=== PATIENT | male | born 1945 | race Hispanic/Latino ===

== ENCOUNTER 2018-08-25 09:26 | Emergency (ER) | payer OTHER ==
[~2018-08-25] VITALS: Ht 160 cm; Wt 88.0 kg
[~2018-08-25 09:26] MED LIST: AMLODIPINE BESYL5 MG PO; LEVEMIR; LEVOTHYROXINE150 MCG PO; METOPROLOL SUCC50 MG PO; Z.0.GLIMEPIRIDE4 MG PO; Z.0.SIMVASTATIN20 MG PO; Z.1.METFORMIN HCL100 PO; Z.2.LOSARTAN-HCTZ1 E PO; [UNRECOGNIZED DRUG - OTHER]
[2018-08-25] MEDS ORDERED: TETANUS/DIPHTHERIA TOX ADULT 0.5 ML SYR IM ONE (10:15)
--- NOTE | 2018-08-25 11:07 | Diagnostic Imaging Report ---
History:Fall in stairs Comparison studies:CT head 03/24/2012 Technique: Axial images were obtained from the skull base to the vertex. Coronal and sagittal images reconstructed from the axial data. Intravenous contrast: None Dose modulation, iterative reconstruction, and/or weight based adjustment of the mA/kV was utilized to reduce the radiation dose to as low as reasonably achievable. Findings: Scalp/skull: Midline occipital moderate size scalp hematoma with associated emphysema. No underlying fracture. Extra-axial spaces: No masses. Trace of subarachnoid hemorrhage at the right cingulate sulcus. No midline shift or herniation Brain sulci: Mildly prominent. Ventricles: Mild compensatory dilatation. No hydrocephalus. Parenchyma: Few hypodensities in the supratentorial white matter are small vessel ischemic changes. No masses, hemorrhage, acute or chronic cortical vascular insults. Sellar/suprasellar region: No abnormalities. Craniocervical junction: Patent foramen magnum. No Chiari one malformation. Incidental findings: Atherosclerotic calcifications in the carotid siphons . Impression: Trace of subarachnoid hemorrhage at the right cingulate sulcus. Moderate-sized occipital scalp hematoma with subcutaneous emphysema. No fractures Chronic findings: 1. Mild generalized volume loss. 2. Mild supratentorial white matter small vessel ischemic changes. The above finding was reported and acknowledged by Dr. Yap at 11:11 AM 08/25/2018. Signed by: DR Nishant Hawkins M.D. on 08/25/2018 11:12 AM
--- NOTE | 2018-08-25 11:21 | Diagnostic Imaging Report ---
History: Trauma, pain Comparison studies: None Technique: Axial images were obtained through the cervical region. Coronal and sagittal images reconstructed from the axial data. Dose modulation, iterative reconstruction, and/or weight based adjustment of the mA/kV was utilized to reduce the radiation dose to as low as reasonably achievable. Intravenous contrast: None Findings: Fractures: None. Soft tissue injuries: None. Atlantoaxial articulation: Intact. Alignment: Strain cervical curvature may be positional. The subluxations. Cervicomedullary junction: No abnormalities. The foramen magnum is patent. Soft tissues: No gross acute abnormalities. Vertebrae: No fractures, infection or neoplasm. Degenerative changes: Mild multilevel disc degeneration, greatest at C5-C6. Mild canal stenosis at C3-C4 due to a disc bulge with small central disc protrusion. Mild uncovertebral and facet arthrosis without significant foraminal stenosis. Incidental findings: Calcified atherosclerosis in the carotid siphons. Corticated 5 mm ossification medial to the greater cornu of the hyoid bone. Chronic inflammatory changes at the left mastoid tip. IMPRESSION: 1. No acute cervical spine abnormalities. 2. Ligament, spinal cord and or vascular abnormalities cannot be excluded on the basis of this examination Signed by: Dr. Vikram Delacruz M.D. on 08/25/2018 11:18 AM
--- NOTE | 2018-08-25 12:17 | NUR ---
REPORT TO [facility] [phone]
[2018-08-25 13:50] VITALS: BP 155/60
== END 2018-08-25 12:00 | disposition short-term general hospital (02) ==
LOC: FSED 09:26
DX: S06.6X0A Traumatic subarachnoid hemorrhage without loss of consciousness, initial encounter (principal); S01.01XA Laceration without foreign body of scalp, initial encounter; W18.2XXA Fall in (into) shower or empty bathtub, initial encounter; Y93.E1 Activity, personal bathing and showering; Y92.002 Bathroom of unspecified non-institutional (private) residence as the place of occurrence of the external cause; I10 Essential (primary) hypertension; E11.9 Type 2 diabetes mellitus without complications; E03.9 Hypothyroidism, unspecified
CPT/HCPCS: 70450; 72125; 80048; 85025; 90714; 99285

== ENCOUNTER 2019-04-20 05:30 | Observation (INO) | payer MEDICARE ==
[2019-04-18 10:17] LABS: BASOPHILS # (AUTO) 0.1 (0.0-0.1); BASOPHILS % 0.9 % (0.0-1.0); EOSINOPHILS # (AUTO) 0.1 (0.0-0.4); HEMATOCRIT 46.9 % (38.2-49.6); LYMPHOCYTES # (AUTO) 2.2 (1.0-3.2); LYMPHOCYTES % 32.6 % (18.0-39.1); MEAN CORPUSCULAR HEMOGLOBIN 28.2 pg (28-32); MEAN CORPUSCULAR VOLUME 88.3 fL (81-99); MONOCYTES # (AUTO) 0.7 (0.2-0.8); MONOCYTES % 9.6 % (4.4-11.3); NEUTROPHILS # (AUTO) 3.7 (2.1-6.9); NEUTROPHILS % 54.5 % (38.7-80.0); PLATELET COUNT 233 x10e3/uL (140-360); RED BLOOD COUNT 5.31 x10e6/uL (4.3-5.7); RED CELL DISTRIBUTION WIDTH 15.2 % (11.7-14.4)
--- NOTE | 2019-04-18 10:39 | Diagnostic Imaging Report ---
EXAM: CHEST 2 VIEWS DATE: 04/18/2019 9:51 AM INDICATION: Preoperative evaluation COMPARISON: None FINDINGS: The trachea is midline. The lungs are symmetrically expanded without evidence for large focal consolidation, pneumothorax, or significant pleural effusion. The cardiomediastinal silhouette and pulmonary vasculature are within normal limits. Mild tortuosity of the thoracic aorta noted. Degenerative changes noted of the visualized spine. No acute osseous abnormality is identified. The surrounding soft tissues are unremarkable. IMPRESSION: No acute cardiopulmonary process identified. Signed by: Dr. Kobe Castillo MD on 04/18/2019 10:36 AM
[2019-04-18 10:52] LABS: ANION GAP 16.8 mmol/L (8-16); CALCIUM 9.8 mg/dL (8.4-10.2); CREATININE, SERUM 1.29 mg/dL (0.72-1.25); POTASSIUM 3.8 mmol/L (3.5-5.1)
[2019-04-18 11:08] LABS: INR 0.94; PROTHROMBIN TIME 13.1 seconds (11.9-14.5)
[2019-04-18 11:09] LABS: PARTIAL THROMBOPLASTIN TIME 31.5 seconds (23.8-35.5)
[~2019-04-20] VITALS: Ht 160 cm; Wt 88.1 kg
[~2019-04-20 05:30] MED LIST changes: +ASPIRIN81 MG PO; -LEVEMIR; +LEVEMIR SQ; +LOSARTAN POTAS100 MG PO; +NOVOLIN R100 UNIT/1 SQ; +OZEMPIC0.25 MG/0. SQ
--- OUTSIDE RECORDS SUMMARY | 2019-04-20 05:40 | XMS REPORT ---
Author [facility] Address Unknown Phone Unavailable Care Team Providers Care Remedial Reading Teacher Name Role Phone OSCAR LANCE Unavailable Unavailable JM BENDER Unavailable Unavailable Problems This patient has no known problems. Allergies, Adverse Reactions, Alerts This patient has no known allergies or adverse reactions. Medications This patient has no known medications. Encounters Start Date/Time End Date/Time Encounter Type Admission Type Attending Clinicians Care Facility Care Department Encounter ID 2018-08-25 15:12:00 2018-08-25 12:43:00 Inpatient U [facility] [id number] Results Test Description Test Time Test Comments Text Results Atomic Results Result Comments CHEST 2 VIEWS 2019-04-18 10:31:00 [place] [address] Patient Name: MOOK DUMONT MR #: [id number] : 1945 Age/Sex: 74/M Req #: [id number] [facility] Physician: Ordered by: OSCAR LANCE MD Report #: [id number] Location: OR Room/Bed: Procedure: [id number] DX/CHEST 2 VIEWS Exam Date: Exam Time: REPORT STATUS: Signed EXAM: CHEST 2 VIEWS DATE: 04/18/2019 9:51 AM INDICATION: Preoperative evaluation COMPARISON: None FINDINGS: The trachea is midline. The lungs are symmetrically expanded without evidence for large focal consolidation, pneumothorax, or significant pleural effusion. The cardiomediastinal silhouette and pulmonary vasculature are within normal limits. Mild tortuosity of the thoracic aorta noted. Degenerative changes noted of the visualized spine. No acute osseous abnormality is identified. The surrounding soft tissues are unremarkable. IMPRESSION: No acute cardiopulmonary process identified. Signed by: Dr. Kobe Castillo MD on 04/18/2019 10:36 AM Dictated By: KOBE CASTILLO MD 1036 Transcribed By: FANNIE on 04/18/19 1036 COPY TO: OSCAR LANCE MD CT C-SPINE W/O - [facility] 2018-08-25 11:07:00 [place] [address] Patient Name: MOOK DUMONT MR #: [id number] : 1945 Age/Sex: 73/M Req #: [id number] Adm Physician: Ordered by: JM BENDER MD Report #: [id number] Location: [facility] Room/Bed: Procedure: [id number] HOPD/CT C-SPINE W/O - [facility] Exam Date: 08/25/18 Exam Time: 1108 REPORT STATUS: Signed History: Trauma, pain Comparison studies: None Technique: Axial images were obtained through the cervical region. Coronal and sagittal images reconstructed from the axial data. Dose modulation, iterative reconstruction, and/or weight based adjustment of the mA/kV was utilized to reduce the radiation dose to as low as reasonably achievable. Intravenous contrast: None Findings: Fractures: None. Soft tissue injuries: None. Atlantoaxial articulation: Intact. Alignment: Strain cervical curvature may be positional. The subluxations. Cervicomedullary junction: No abnormalities. The foramen magnum is patent. Soft tissues: No gross acute abnormalities. Vertebrae: No fractures, infection or neoplasm. Degenerative changes: Mild multilevel disc degeneration, greatest at C5-C6. Mild canal stenosis at C3-C4 due to a disc bulge with small central disc protrusion. Mild uncovertebral and facet arthrosis without significant foraminal stenosis. Incidental findings: Calcified atherosclerosis in the carotid siphons. Corticated 5 mm ossification medial to the greater cornu of the hyoid bone. Chronic inflammatory changes at the left mastoid tip. IMPRESSION: 1. No acute cervical spine abnormalities. 2. Ligament, spinal cord and or vascular abnormalities cannot be excluded on the basis of this examination Signed by: Dr. Pat Delacruz M.D. on 08/25/2018 11:18 AM Dictated By: PAT DELACRUZ MD 17 Transcribed By: FANNIE on 08/25/181117 COPY TO: JM BENDER MD CT BRAIN WO-[facility] 2018-08-25 11:02:00 [place] [address] Patient Name: MOOK DUMONT MR #: [id number] : 1945 Age/Sex: 73/M Req #: [id number] Adm Physician: Ordered by: JM BENDER MD Report #: [id number] Location: [facility] Room/Bed: Procedure: [id number] HOPD/CT BRAIN WO-[facility] Exam Date: 08/25/18 Exam Time: 1108 REPORT STATUS: Signed History:Fall in stairs Comparison studies:CT head 03/24/2012 Technique: Axial images were obtained from the skull base to the vertex. Coronal and sagittal images reconstructed from the axial data. Intravenous contrast: None Dose modulation, iterative reconstruction, and/or weight based adjustment of the mA/kV was utilized to reduce the radiation dose to as low as reasonably achievable. Findings: Scalp/skull: Midline occipital moderate size scalp hematoma with associated emphysema. No underlying fracture. Extra-axial spaces: No masses. Trace of subarachnoid hemorrhage at the right cingulate sulcus. No midline shift or herniation Brain sulci: Mildly prominent. Ventricles: Mild compensatory dilatation. No hydrocephalus. Parenchyma: Few hypodensities in the supratentorial white matter are small vessel ischemic changes. No masses, hemorrhage, acute or chronic cortical vascular insults. Sellar/suprasellar region: No abnormalities. Craniocervical junction: Patent foramen magnum. No Chiari one malformation. Incidental findings: Atherosclerotic calcifications in the carotid siphons . Impression: Trace of subarachnoid hemorrhage at the right cingulate sulcus. Moderate-sized occipital scalp hematoma with subcutaneous emphysema. No fractures Chronic findings: 1. Mild generalized volume loss. 2. Mild supratentorial white matter small vessel ischemic changes. The above finding was reported and acknowledged by Dr. Bender at 11:11 AM 08/25/2018. Signed by: DR Nishant Hawkins M.D. on 08/25/2018 11:12 AM Dictated By: NISHANT PARKER MD 111 Transcribed By: FANNIE on 08/25/181111 COPY TO: JM BENDER MD
[2019-04-20] MEDS ORDERED: THROMBIN FOR SOLN 5,000 UNIT VIAL ONE (06:44)
[2019-04-20] MEDS ORDERED: BACITRACIN 50,000 UNIT VIAL ONE (06:44)
[2019-04-20] MEDS ORDERED: BUPIVACAINE 0.5%/EPI 30 ML SDV INJ ONE (06:44)
[2019-04-20] MEDS ORDERED: CEFAZOLIN SOD 1 GM/NS 50ML 100 ML IV ONE (06:51)
[2019-04-20] MEDS ORDERED: INSULIN REGULAR, HUMAN 100 UNIT/1 ML 3ML VIAL ONE (07:04)
[2019-04-20] MEDS ORDERED: SUGAMMADEX SODIUM 200 MG/2 ML VIAL IV ONE (08:03)
[2019-04-20] MEDS: LACTATED RINGER'S 1,000 ML IV SCH ×2 (08:13→16:33)
[2019-04-20] MEDS ORDERED: PROMETHAZINE HCL (IM) 25 MG/ML VIAL IM PRN (08:15)
[2019-04-20] MEDS ORDERED: MAGNESIUM/ALUMINUM/SIMETHICONE 30 ML UDC PO PRN (08:15)
[2019-04-20] MEDS ORDERED: CARISOPRODOL 350 MG TAB PO PRN (08:15)
[2019-04-20] MEDS ORDERED: HYDROMORPHONE 2MG/ML 2 MG/ML ML IV PRN (08:15)
[2019-04-20] MEDS ORDERED: CEPACOL SORE THROAT LOZENGES PO PRN (08:15)
[2019-04-20] MEDS ORDERED: ONDANSETRON HCL INJ 2MG/ML 2ML 2 MG/ML VIAL IV PRN (08:15)
[2019-04-20] MEDS ORDERED: MORPHINE SULFATE 5 MG/ML VIAL IM PRN (08:15)
[2019-04-20] MEDS ORDERED: DEXTROSE 50% SYRINGE 50 ML IV PRN ×2 (08:15→20:00)
[2019-04-20] MEDS ORDERED: ACETAMINOPHEN 325 MG TAB PO PRN (08:15)
--- NOTE | 2019-04-20 08:38 | Diagnostic Imaging Report ---
Lumbar spine, single intraoperative view Clinical indications: L2-L3 spinal stenosis Findings/impression: Single crosstable lateral view of the lumbar spine was obtained. Multilevel degenerative changes of the lumbar spine which are most pronounced at L2-L3 Signed by: Cuong Scott MD on 04/20/2019 8:35 AM
--- NOTE | 2019-04-20 08:39 | Diagnostic Imaging Report ---
Lumbar spine, one view Clinical indication: L2-L3 spinal stenosis, surgical level localization Comparison: Earlier the same day Findings/impressions: Surgical instruments project over the posterior elements of L2. Signed by: Cuong Scott MD on 04/20/2019 8:36 AM
[2019-04-20] MEDS ORDERED: FENTANYL CITRATE/PF 100MCG/2 ML INJ ONE ×2 (08:48→18:13)
[2019-04-20] MEDS ORDERED: AMLODIPINE BESYLATE 5 MG TAB PO SCH (09:00)
[2019-04-20] MEDS ORDERED: LEVEMIR 35 UNIT SQ SCH (09:00)
[2019-04-20] MEDS ORDERED: LEVOTHYROXINE SODIUM 275 MCG PO SCH (09:00)
[2019-04-20] MEDS ORDERED: NON-FORMULARY MEDICATION (Glimepiride 4 MG) PO SCH (09:00)
[2019-04-20] MEDS ORDERED: NON-FORMULARY MEDICATION (Metformin Hcl 1,000 MG) PO SCH (09:00)
--- NOTE | 2019-04-20 09:45 | NUR ---
PT TO THE FLOOR FROM PACU AT THIS TIME. VITALS WNL. PT DENIES NEEDS AT THIS TIME.
[2019-04-20 10:00] VITALS: BP 145/89
[2019-04-20 10:15] VITALS: BP 145/89
[2019-04-20] MEDS: OXYCODONE/ACETAMINOPHEN 5-325 1 EACH TABLET PO PRN ×3 (11:09→20:08)
[2019-04-20] MEDS: INSULIN GLARGINE 100 UNITS/ML VIAL SQ SCH ×2 (12:24→20:13)
[2019-04-20] MEDS: CEFAZOLIN SOD 1 GM/NS 50ML 50 ML IV SCH ×2 (14:36→21:42)
[2019-04-20 15:01] VITALS: BP 159/99
--- NOTE | 2019-04-20 16:09 | Operative Report ---
DATE OF PROCEDURE: 04/20/2019 SURGEON: Gary Baum MD PREOPERATIVE DIAGNOSIS: L2-3 severe spinal stenosis with neurogenic claudication, M48.062. POSTOPERATIVE DIAGNOSIS: L2-3 severe spinal stenosis with neurogenic claudication, M48.062. PROCEDURES: 1. L2 bilateral decompressive laminectomy at L2-L3, bilateral medial facetectomies, 39582. 2. L3 bilateral partial decompressive laminectomy, 79409. ANESTHESIA: General. INDICATIONS: The patient is a 74-year-old man who presents with L2-3 severe spinal stenosis with neurogenic claudication and was taken to surgery for decompression of the segments. PROCEDURE IN DETAIL: After induction of general anesthesia, the patient was placed on the operating table in prone position over Shadi frame. Lumbar region was prepped and draped in sterile fashion. A preoperative x-ray was obtained. A midline incision was created. Lumbar fascia was opened along the midline and a subperiosteal dissection was carried out to expose the spinous processes and lamina of L2 and L3. Second x-ray confirmed correct localization of L2. The operating microscope was brought in. Portions of the spinous processes of L2 and L3 were resected. A high-speed drill equipped with a 5 mm vernell bur was used to drill the inferior aspect of lamina of L2 and superior aspect of lamina of L3 and the medial aspect of the L2-L3 hypertrophic facet joints bilaterally. The markedly hypertrophic ligamentum flavum was carefully resected and the traversing L3 nerve roots were bilaterally exposed and decompressed. Meticulous hemostasis was secured. Retractor was removed. Lumbar fascia was closed with 0 Vicryl suture. Subcutaneous layer was closed with 2-0 Vicryl sutures. The skin was closed with 3-0 Monocryl sutures in subcuticular fashion. Steri-Strips and dressing were applied. The patient was awakened, extubated, and taken to postanesthesia care unit in stable condition. No intraoperative complications were encountered. ESTIMATED BLOOD LOSS: 20 mL. Gary Baum MD PP/MODL /[id number]
--- NOTE | 2019-04-20 16:12 | NUR ---
DRESSING REINFORCED TO SURGICAL SITE ON BACK.
[2019-04-20] MEDS ORDERED: METOPROLOL SUCCINATE 50 MG TAB XL PO SCH (17:00)
[2019-04-20] MEDS: METFORMIN HCL 500 MG TAB PO SCH (17:04)
[2019-04-20] MEDS: GLIMEPIRIDE 2 MG TAB PO SCH (17:04)
[2019-04-20] MEDS ORDERED: ONDANSETRON HCL INJ 2MG/ML 2ML 2 MG/ML VIAL ONE (17:51)
[2019-04-20] MEDS ORDERED: ROCURONIUM BROMIDE 10 MG/ML 5ML VIAL ONE (17:51)
[2019-04-20] MEDS ORDERED: LIDOCAINE HCL 2% LOCAL INJ 5 ML SDV VIAL INJ ONE (17:51)
[2019-04-20] MEDS ORDERED: SEVOFLURANE INHAL SOLN 250 ML PEN BTL ONE (17:51)
[2019-04-20] MEDS ORDERED: ACETAMINOPHEN 1000 MG/100 ML IV ONE (17:51)
[2019-04-20] MEDS ORDERED: DEXAMETHASONE SOD PHOS INJ 4 MG/ML VIAL ONE (17:51)
[2019-04-20] MEDS ORDERED: PROPOFOL IV EMULSION 10 MG/ML 20 ML VIAL ONE (17:51)
[2019-04-20] MEDS ORDERED: MIDAZOLAM HCL 2 MG/2 ML VIAL ONE (18:13)
[2019-04-20 19:00] VITALS: BP 159/99
--- NOTE | 2019-04-20 19:41 | NUR ---
place patient on high sliding scale of lispro. Give 35 units of the routine regular insulin as ordered, recheck in an hour after administration and follow sliding scale. Spoke to Dr. Baum.l
[2019-04-20 20:00] VITALS: BP 144/82
[2019-04-20] MEDS ORDERED: SIMVASTATIN 20 MG TAB PO SCH (21:00)
[2019-04-20] MEDS ORDERED: ZOLPIDEM TARTRATE 5 MG TAB PO PRN (21:00)
[2019-04-20] MEDS: INSULIN LISPRO 100 UNIT/1 ML 3ML VIAL SQ SCH (21:22)
[2019-04-20 23:40] VITALS: BP 106/60
[2019-04-21] MEDS: OXYCODONE/ACETAMINOPHEN 5-325 1 EACH TABLET PO PRN ×4 (00:23→11:50)
[2019-04-21] MEDS: LACTATED RINGER'S 1,000 ML IV SCH ×2 (00:53→09:13)
[2019-04-21 04:00] VITALS: BP 148/72
[2019-04-21] MEDS: CEFAZOLIN SOD 1 GM/NS 50ML 50 ML IV SCH (05:26)
[2019-04-21] MEDS ORDERED: LEVOTHYROXINE SODIUM 100 MCG TAB PO SCH (06:00)
[2019-04-21] MEDS ORDERED: LEVOTHYROXINE SODIUM 75 MCG TAB PO SCH (06:00)
--- NOTE | 2019-04-21 07:00 | NUR ---
RECEIVED BEDSIDE REPORT FROM FERMENTATION ENGINEER RN. PT DENIES NEEDS AT THIS TIME.
[2019-04-21 07:35] VITALS: BP 135/79
[2019-04-21 08:00] VITALS: BP 135/79
[2019-04-21] MEDS: GLIMEPIRIDE 2 MG TAB PO SCH (08:39)
[2019-04-21] MEDS: METFORMIN HCL 500 MG TAB PO SCH (08:40)
[2019-04-21] MEDS: INSULIN LISPRO 100 UNIT/1 ML 3ML VIAL SQ SCH (08:46)
[2019-04-21] MEDS ORDERED: AMLODIPINE BESYLATE 10 MG TAB PO SCH (09:00)
[2019-04-21] MEDS ORDERED: LOSARTAN POTASSIUM 100 MG TAB PO SCH (09:00)
[2019-04-21] MEDS: INSULIN GLARGINE 100 UNITS/ML VIAL SQ SCH (09:45)
[2019-04-21] MEDS ORDERED: NORCO 7.5-3251 EACH PO (11:55)
== END 2019-04-21 12:22 | disposition home or self-care (01) ==
LOC: OR 05:30 → PACU V 08:14 → IMCU 09:49
PROVIDERS: ADMIT Neurological Surgery; ATTEND Neurological Surgery
DX: M48.062 Spinal stenosis, lumbar region with neurogenic claudication (principal); Z01.810 Encounter for preprocedural cardiovascular examination; Z01.812 Encounter for preprocedural laboratory examination; Z01.811 Encounter for preprocedural respiratory examination; E11.9 Type 2 diabetes mellitus without complications; Z86.73 Personal history of transient ischemic attack (TIA), and cerebral infarction without residual deficits; G47.33 Obstructive sleep apnea (adult) (pediatric); I10 Essential (primary) hypertension; Z79.4 Long term (current) use of insulin
CPT/HCPCS: 36415 ×3; 63047; 63048; 71046; 72020; 80048; 82948 ×2; 85025; 85610; 85730; 88304; 88311; 93005; G0378 ×2; J0131; J0690 ×2; J1100; J1815 ×2; J2001; J2250; J2405; J2704; J3010; J1817; J2270

== ENCOUNTER 2019-06-27 10:00 | Outpatient (RCR) | payer OTHER ==
[~2019-06-27 10:00] MED LIST changes: +NORCO 7.5-3251 EACH PO
== END 2019-07-15 ==
LOC: PT 10:00
PROVIDERS: ATTEND Neurological Surgery
DX: M48.062 Spinal stenosis, lumbar region with neurogenic claudication (principal)
CPT/HCPCS: 97139

== ENCOUNTER → 2019-07-31 | Outpatient (CLI) | payer MEDICARE, OTHER ==
[2019-07-31 14:19] LABS: BASOPHILS # (AUTO) 0.1 (0.0-0.1); BASOPHILS % 0.6 % (0.0-1.0); EOSINOPHILS # (AUTO) 0.2 (0.0-0.4); EOSINOPHILS % 2.2 % (0.0-6.0); HEMATOCRIT 48.1 % (34.2-44.1); HEMOGLOBIN 15.6 g/dL (12.0-16.0); LYMPHOCYTES # (AUTO) 2.9 (1.0-3.2); LYMPHOCYTES % 36.6 % (18.0-39.1); MEAN CORPUSCULAR HEMOGLOBIN 28.5 pg (28-32); MEAN CORPUSCULAR HGB CONC 32.4 g/dL (31-35); MEAN CORPUSCULAR VOLUME 87.9 fL (81-99); MONOCYTES # (AUTO) 0.7 (0.2-0.8); MONOCYTES % 8.9 % (4.4-11.3); NEUTROPHILS # (AUTO) 4.1 (2.1-6.9); NEUTROPHILS % 51.5 % (38.7-80.0); PLATELET COUNT 258 x10e3/uL (140-360); RED BLOOD COUNT 5.47 x10e6/uL (3.6-5.1); RED CELL DISTRIBUTION WIDTH 15.2 % (11.7-14.4)
[2019-07-31 14:43] LABS: ANION GAP 13.4 mmol/L (8-16); CALCIUM 9.5 mg/dL (8.4-10.2); CREATININE, SERUM 1.07 mg/dL (0.57-1.11); POTASSIUM 3.4 mmol/L (3.5-5.1)
== END ==
LOC: RAD 05:00 → EDSTATUS 08-10 07:00
PROVIDERS: ATTEND Ophthalmology
DX: Z01.818 Encounter for other preprocedural examination (principal); H25.11 Age-related nuclear cataract, right eye; Z53.8 Procedure and treatment not carried out for other reasons
CPT/HCPCS: 36415; 80048; 85025; 93005

== ENCOUNTER → 2019-10-19 | Day surgery (SDC) | payer OTHER ==
[2019-10-16 13:30] LABS: BASOPHILS % 0.5 % (0.0-1.0); EOSINOPHILS # (AUTO) 0.1 (0.0-0.4); EOSINOPHILS % 1.7 % (0.0-6.0); HEMATOCRIT 44.5 % (38.2-49.6); HEMOGLOBIN 14.4 g/dL (14.0-18.0); LYMPHOCYTES # (AUTO) 2.1 (1.0-3.2); LYMPHOCYTES % 35.6 % (18.0-39.1); MEAN CORPUSCULAR HEMOGLOBIN 28.3 pg (28-32); MEAN CORPUSCULAR HGB CONC 32.4 g/dL (31-35); MEAN CORPUSCULAR VOLUME 87.4 fL (81-99); MONOCYTES # (AUTO) 0.7 (0.2-0.8); MONOCYTES % 11.3 % (4.4-11.3); NEUTROPHILS % 50.7 % (38.7-80.0); PLATELET COUNT 231 x10e3/uL (140-360); RED BLOOD COUNT 5.09 x10e6/uL (4.3-5.7); RED CELL DISTRIBUTION WIDTH 15.6 % (11.7-14.4)
[2019-10-16 13:46] LABS: ANION GAP 14.8 mmol/L (8-16); CALCIUM 9.5 mg/dL (8.4-10.2); CREATININE, SERUM 1.34 mg/dL (0.72-1.25); POTASSIUM 3.8 mmol/L (3.5-5.1)
[~2019-10-19] MED LIST changes: +BALANCED SALT SOLN (OPTH) 15 ML BTL IO ONE; +BUPIVACAINE HC 0.75% PF 10ML VIAL INJ ONE; +CHONDR SU A NA/HYALUR SOD 1 EACH KIT IO ONE; +CYCLOPENTOLATE HCL 2% OPTH SOLN 2 ML BTL OP ONE; +EPINEPHRINE HCL 1:1000 1ML 1 MG/ML AMP ONE; +GATIFLOXACIN(OPTH) 5 ML LIQD ONE; +LIDOCAINE 2% /EPINEPHRINE 20 ML SDV INJ ONE; +LIDOCAINE HCL 2% LOCAL INJ 5 ML SDV VIAL INJ ONE; +LIDOCAINE HCL-PF 4% 40 MG/1 ML 5ML AMP ONE; +PHENYLEPHRINE HCL 2 ML DROPS ONE; +PILOCARPINE HCL(OPTH) 15 ML LIQD ONE; +POVIDONE IODINE 5% (OPTH) 30 ML BTL ONE; +PROPOFOL IV EMULSION 10 MG/ML 20 ML VIAL ONE; +TOBRAMYCIN/DEXAMETHASONE(OPTH) 3.5 GM TUBE ONE
[2019-10-19 14:15] VITALS: BP 144/68
== END | disposition home or self-care (01) ==
LOC: EDSEX 08:00 → OR 08:56
PROVIDERS: ATTEND Ophthalmology
DX: H25.11 Age-related nuclear cataract, right eye (principal); E11.22 Type 2 diabetes mellitus with diabetic chronic kidney disease; I12.9 Hypertensive chronic kidney disease with stage 1 through stage 4 chronic kidney disease, or unspecified chronic kidney disease; N18.9 Chronic kidney disease, unspecified; E07.9 Disorder of thyroid, unspecified; Z01.810 Encounter for preprocedural cardiovascular examination; Z01.812 Encounter for preprocedural laboratory examination; Z11.59 Encounter for screening for other viral diseases; Z79.84 Long term (current) use of oral hypoglycemic drugs; Z79.82 Long term (current) use of aspirin; Z79.4 Long term (current) use of insulin
CPT/HCPCS: 36415; 80048; 82948; 85025; 87635; 93005; J0171; J2001; V2632

== ENCOUNTER 2021-01-29 13:05 | Emergency (ER) | payer MEDICARE, OTHER ==
[~2021-01-29] VITALS: Ht 160 cm; Wt 88.0 kg
[~2021-01-29 13:05] MED LIST changes: -BALANCED SALT SOLN (OPTH) 15 ML BTL IO ONE; -BUPIVACAINE HC 0.75% PF 10ML VIAL INJ ONE; -CHONDR SU A NA/HYALUR SOD 1 EACH KIT IO ONE; -CYCLOPENTOLATE HCL 2% OPTH SOLN 2 ML BTL OP ONE; -EPINEPHRINE HCL 1:1000 1ML 1 MG/ML AMP ONE; -GATIFLOXACIN(OPTH) 5 ML LIQD ONE; -LIDOCAINE 2% /EPINEPHRINE 20 ML SDV INJ ONE; -LIDOCAINE HCL 2% LOCAL INJ 5 ML SDV VIAL INJ ONE; -LIDOCAINE HCL-PF 4% 40 MG/1 ML 5ML AMP ONE; -PHENYLEPHRINE HCL 2 ML DROPS ONE; -PILOCARPINE HCL(OPTH) 15 ML LIQD ONE; -POVIDONE IODINE 5% (OPTH) 30 ML BTL ONE; -PROPOFOL IV EMULSION 10 MG/ML 20 ML VIAL ONE; -TOBRAMYCIN/DEXAMETHASONE(OPTH) 3.5 GM TUBE ONE
[2021-01-29] MEDS ORDERED: ONDANSETRON HCL INJ 2MG/ML 2ML 2 MG/ML VIAL IV STA (13:25)
[2021-01-29 13:54] LABS: BASOPHILS # (AUTO) 0.1 (0.0-0.1); BASOPHILS % 0.5 % (0.0-1.0); EOSINOPHILS % 0.1 % (0.0-6.0); HEMOGLOBIN 9.1 g/dL (14.0-18.0); LYMPHOCYTES # (AUTO) 0.6 (1.0-3.2); LYMPHOCYTES % 5.2 % (18.0-39.1); MEAN CORPUSCULAR HEMOGLOBIN 18.6 pg (28-32); MEAN CORPUSCULAR HGB CONC 28.4 g/dL (31-35); MEAN CORPUSCULAR VOLUME 65.4 fL (81-99); MONOCYTES # (AUTO) 0.8 (0.2-0.8); NEUTROPHILS # (AUTO) 10.1 (2.1-6.9); NEUTROPHILS % 85.8 % (38.7-80.0); PLATELET COUNT 304 x10e3/uL (140-360); RED BLOOD COUNT 4.89 x10e6/uL (4.3-5.7); RED CELL DISTRIBUTION WIDTH 21.2 % (11.7-14.4)
[2021-01-29 14:09] LABS: CLARITY,URINE CLEAR (CLEAR); COLOR,URINE YELLOW (YELLOW)
[2021-01-29 14:10] LABS: KETONES,URINE NEGATIVE (NEGATIVE); LEUKOCYTE ESTERASE ,URINE NEGATIVE (NEGATIVE); NITRITE,URINE NEGATIVE (NEGATIVE); PROTEIN,URINE DIPSTICK >=300 (NEGATIVE); URINE UROBILINOGEN 0.2 mg/dL (0.2 - 1)
[2021-01-29 14:17] LABS: ALBUMIN 2.8 g/dL (3.5-5.0); ALBUMIN/GLOBULIN RATIO 0.6 (0.8-2.0); ANION GAP 14.7 mmol/L (8-16); CALCIUM 8.4 mg/dL (8.4-10.2); CREATININE, SERUM 1.58 mg/dL (0.72-1.25); POTASSIUM 3.7 mmol/L (3.5-5.1)
[2021-01-29 14:19] LABS: BACTERIA,URINE FEW /HPF; WBC,URINE (MAN) 0-5 /HPF (0-5)
[2021-01-29] MEDS ORDERED: SODIUM CHLORIDE 0.9% 1000ML 1,000 ML IV SCH ×2 (15:00)
[2021-01-29] MEDS ORDERED: Vancomycin IV 1 GM in SODIUM CHLORIDE 0.9% 250ML 250 ML IV ONE (15:00)
[2021-01-29] MEDS ORDERED: PIPERACILLIN/TAZOBACTAM 4.5 GM in SODIUM CHLORIDE 0.9% 100 ML IV ONE (15:00)
[2021-01-29] MEDS ORDERED: ZITHROMAX250 MG PO (15:07)
[2021-01-29] MEDS ORDERED: ONDANSETRON ODT4 MG PO (15:07)
[2021-01-29] MEDS ORDERED: CEFTRIAXONE 1 GM in SODIUM CHLORIDE 0.9% 50ML 50 ML IV SCH (15:30)
[2021-01-29] MEDS ORDERED: SODIUM CHLORIDE 0.9% 50ML 50 ML ONE (18:26)
[2021-01-29] MEDS ORDERED: IOPAMIDOL 370 MG/ML 200 ML INFUS..BTL INJ ONE (18:27)
[2021-01-29 21:19] VITALS: BP 159/84
== END 2021-01-29 21:10 | disposition home or self-care (01) ==
LOC: ER 13:09
DX: R05 Cough (principal); J18.9 Pneumonia, unspecified organism; E11.65 Type 2 diabetes mellitus with hyperglycemia; I10 Essential (primary) hypertension; E78.5 Hyperlipidemia, unspecified; E78.00 Pure hypercholesterolemia, unspecified; Z86.73 Personal history of transient ischemic attack (TIA), and cerebral infarction without residual deficits
CPT/HCPCS: 36415; 71045; 71260; 74177; 80053; 81001; 83605; 85025; 87040; 99284; J0456; J0696; J2405; J7030; J7050; Q9967; U0002

== ENCOUNTER 2022-11-05 23:19 | Observation (INO) | payer MEDICARE ==
[~2022-11-05] VITALS: Ht 160 cm; Wt 88.0 kg
[~2022-11-05 23:19] MED LIST changes: +ONDANSETRON ODT4 MG PO; +ZITHROMAX250 MG PO
[2022-11-05 23:42] LABS: BASOPHILS % 0.3 % (0.0-1.0); EOSINOPHILS # (AUTO) 0.1 (0.0-0.4); EOSINOPHILS % 1.6 % (0.0-6.0); HEMOGLOBIN 12.2 g/dL (14.0-18.0); LYMPHOCYTES # (AUTO) 1.3 (1.0-3.2); LYMPHOCYTES % 18.2 % (18.0-39.1); MEAN CORPUSCULAR HEMOGLOBIN 24.8 pg (28-32); MEAN CORPUSCULAR HGB CONC 30.5 g/dL (31-35); MEAN CORPUSCULAR VOLUME 81.5 fL (81-99); MONOCYTES # (AUTO) 0.6 (0.2-0.8); NEUTROPHILS # (AUTO) 4.9 (2.1-6.9); NEUTROPHILS % 71.2 % (38.7-80.0); PLATELET COUNT 157 x10e3/uL (140-360); RED BLOOD COUNT 4.91 x10e6/uL (4.3-5.7); RED CELL DISTRIBUTION WIDTH 27.9 % (11.7-14.4)
[2022-11-06 00:02] LABS: ALBUMIN 2.8 g/dL (3.5-5.0); ALBUMIN/GLOBULIN RATIO 0.8 (0.8-2.0); ANION GAP 23.1 mmol/L (8-16); CALCIUM 8.1 mg/dL (8.4-10.2); CREATININE, SERUM 2.43 mg/dL (0.72-1.25)
[2022-11-06 00:04] LABS: POTASSIUM 5.1 mmol/L (3.5-5.1)
[2022-11-06] MEDS ORDERED: SODIUM CHLORIDE 0.9% 1000ML 1,000 ML IV ONE (00:30)
[2022-11-06] MEDS ORDERED: DEXTROSE 50% SYRINGE 50 ML IV PRN (01:45)
[2022-11-06] MEDS ORDERED: INSULIN REGULAR, HUMAN 100 UNIT/1 ML SQ ONE (02:15)
[2022-11-06] MEDS ORDERED: ONDANSETRON HCL INJ 2MG/ML 2ML 2 MG/ML VIAL IV STA (03:50)
[2022-11-06] MEDS ORDERED: INSULIN REGULAR, HUMAN 100 UNIT/1 ML SQ SCH (07:30)
[2022-11-06 09:36] VITALS: BP 92/57; PULSE 66; RESP 19; O2SAT 98
== END 2022-11-06 09:58 | disposition home or self-care (01) ==
LOC: ER 23:25 → ERHOLD 11-06 01:41
PROVIDERS: ADMIT Internal Medicine; ATTEND Internal Medicine
DX: I95.2 Hypotension due to drugs (principal); T46.5X5A Adverse effect of other antihypertensive drugs, initial encounter; I10 Essential (primary) hypertension; J84.10 Pulmonary fibrosis, unspecified; E78.5 Hyperlipidemia, unspecified; Y92.019 Unspecified place in single-family (private) house as the place of occurrence of the external cause; Z20.822 Contact with and (suspected) exposure to COVID-19
CPT/HCPCS: 36415 ×2; 71045; 71250; 80053; 82550; 82948; 83880; 84484 ×2; 85025; 93005; 99284; C9113; G0378; J2405; J7030; U0002

== ENCOUNTER 2022-11-06 18:38 | Inpatient (IN) | payer MEDICARE ==
[~2022-11-06] VITALS: Ht 160 cm; Wt 88.0 kg
[2022-11-06 19:39] LABS: BASOPHILS % 0.3 % (0.0-1.0); EOSINOPHILS % 0.3 % (0.0-6.0); HEMATOCRIT 34.7 % (38.2-49.6); HEMOGLOBIN 10.6 g/dL (14.0-18.0); LYMPHOCYTES # (AUTO) 0.5 (1.0-3.2); LYMPHOCYTES % 7.1 % (18.0-39.1); MEAN CORPUSCULAR HEMOGLOBIN 25.4 pg (28-32); MEAN CORPUSCULAR HGB CONC 30.5 g/dL (31-35); MONOCYTES # (AUTO) 0.4 (0.2-0.8); MONOCYTES % 6.1 % (4.4-11.3); NEUTROPHILS # (AUTO) 5.9 (2.1-6.9); NEUTROPHILS % 85.5 % (38.7-80.0); PLATELET COUNT 135 x10e3/uL (140-360); RED BLOOD COUNT 4.18 x10e6/uL (4.3-5.7); RED CELL DISTRIBUTION WIDTH 27.9 % (11.7-14.4)
[2022-11-06 19:53] LABS: ALBUMIN 2.5 g/dL (3.5-5.0); ALBUMIN/GLOBULIN RATIO 0.8 (0.8-2.0); ANION GAP 16.5 mmol/L (8-16); CALCIUM 7.6 mg/dL (8.4-10.2); CREATININE, SERUM 2.62 mg/dL (0.72-1.25); POTASSIUM 4.5 mmol/L (3.5-5.1)
[2022-11-06 20:04] LABS: B-TYPE NATRIURETIC PEPTIDE2 82.8 pg/mL (0-100)
[2022-11-06] MEDS ORDERED: SODIUM CHLORIDE FLUSH 10 ML SYR INJ PRN (20:15)
[2022-11-06] MEDS ORDERED: DEXTROSE 50% SYRINGE 50 ML IV PRN (20:15)
[2022-11-06] MEDS ORDERED: ONDANSETRON HCL INJ 2MG/ML 2ML 2 MG/ML VIAL IV PRN (20:15)
[2022-11-06 20:45] VITALS: PULSE 90; RESP 18; O2SAT 98
[2022-11-06] MEDS: INSULIN REGULAR, HUMAN 100 UNIT/1 ML SQ SCH (21:00)
[2022-11-06] MEDS ORDERED: SODIUM CHLORIDE 0.9% 1000ML 1,000 ML IV ONE (21:45)
[2022-11-06] MEDS ORDERED: DEXTROSE 50% SYRINGE 50 ML IV STA (23:27)
[2022-11-06] MEDS ORDERED: DEXTROSE 50% SYRINGE 50 ML IV ONE (23:28)
[2022-11-07] VITALS (16 sets, daily range): BP systolic 78–126; BP diastolic 43–56; PULSE 72–105; RESP 16–22; TEMP 97.4–98.2; O2SAT 95–100
[2022-11-07] MEDS: INSULIN REGULAR, HUMAN 100 UNIT/1 ML SQ SCH ×4 (07:30→21:00)
[2022-11-07 08:08] LABS: BASOPHILS % 0.4 % (0.0-1.0); EOSINOPHILS # (AUTO) 0.1 (0.0-0.4); EOSINOPHILS % 2.3 % (0.0-6.0); HEMATOCRIT 31.9 % (38.2-49.6); HEMOGLOBIN 9.6 g/dL (14.0-18.0); LYMPHOCYTES # (AUTO) 0.6 (1.0-3.2); LYMPHOCYTES % 10.6 % (18.0-39.1); MEAN CORPUSCULAR HEMOGLOBIN 25.3 pg (28-32); MEAN CORPUSCULAR HGB CONC 30.1 g/dL (31-35); MEAN CORPUSCULAR VOLUME 83.9 fL (81-99); MONOCYTES # (AUTO) 0.5 (0.2-0.8); MONOCYTES % 8.3 % (4.4-11.3); NEUTROPHILS # (AUTO) 4.3 (2.1-6.9); NEUTROPHILS % 77.9 % (38.7-80.0); PLATELET COUNT 130 x10e3/uL (140-360); RED CELL DISTRIBUTION WIDTH 27.7 % (11.7-14.4)
[2022-11-07 08:21] LABS: ALBUMIN 2.3 g/dL (3.5-5.0); ALBUMIN/GLOBULIN RATIO 0.9 (0.8-2.0); ANION GAP 14.1 mmol/L (8-16); CALCIUM 7.3 mg/dL (8.4-10.2); CREATININE, SERUM 2.35 mg/dL (0.72-1.25); POTASSIUM 4.1 mmol/L (3.5-5.1)
[2022-11-07] MEDS ORDERED: ALBUTEROL/IPRATROPIUM 3 ML NEB NEB PRN (13:00)
[2022-11-07] MEDS ORDERED: FUROSEMIDE INJ 10 MG/ML 2 ML VIAL IV ONE (13:15)
[2022-11-07] MEDS: ALBUTEROL/IPRATROPIUM 3 ML NEB NEB SCH ×2 (18:00→21:40)
[2022-11-08] VITALS (10 sets, daily range): BP systolic 106–135; BP diastolic 53–66; PULSE 74–111; RESP 18–22; TEMP 97–99.3; O2SAT 96–100
[2022-11-08] MEDS: INSULIN REGULAR, HUMAN 100 UNIT/1 ML SQ SCH ×4 (07:30→21:09)
[2022-11-08] MEDS: ALBUTEROL/IPRATROPIUM 3 ML NEB NEB SCH ×3 (07:30→18:35)
[2022-11-08 08:24] LABS: BASOPHILS % 0.7 % (0.0-1.0); EOSINOPHILS # (AUTO) 0.3 (0.0-0.4); EOSINOPHILS % 6.1 % (0.0-6.0); HEMATOCRIT 31.4 % (38.2-49.6); HEMOGLOBIN 9.4 g/dL (14.0-18.0); LYMPHOCYTES # (AUTO) 0.7 (1.0-3.2); LYMPHOCYTES % 15.5 % (18.0-39.1); MEAN CORPUSCULAR HEMOGLOBIN 25.7 pg (28-32); MEAN CORPUSCULAR HGB CONC 29.9 g/dL (31-35); MEAN CORPUSCULAR VOLUME 85.8 fL (81-99); MONOCYTES # (AUTO) 0.4 (0.2-0.8); MONOCYTES % 9.2 % (4.4-11.3); NEUTROPHILS % 67.6 % (38.7-80.0); PLATELET COUNT 119 x10e3/uL (140-360); RED BLOOD COUNT 3.66 x10e6/uL (4.3-5.7); RED CELL DISTRIBUTION WIDTH 27.2 % (11.7-14.4)
[2022-11-08 08:38] LABS: ANION GAP 14.1 mmol/L (8-16); CALCIUM 7.6 mg/dL (8.4-10.2); CREATININE, SERUM 1.55 mg/dL (0.72-1.25); POTASSIUM 4.1 mmol/L (3.5-5.1)
[2022-11-08] MEDS: FUROSEMIDE INJ 10 MG/ML 2 ML VIAL IV SCH (08:49)
[2022-11-08] MEDS ORDERED: ASPIRIN 325 MG TAB PO SCH (10:45)
[2022-11-08] MEDS: CLOPIDOGREL BISULFATE 75 MG TAB PO SCH (11:26)
[2022-11-08] MEDS: METOPROLOL TARTRATE 25 MG TAB PO SCH ×2 (11:27→17:11)
[2022-11-08] MEDS: PREDNISONE 10 MG TAB PO SCH (11:27)
[2022-11-08] MEDS: ASPIRIN 81 MG CHEW TAB PO SCH (11:27)
[2022-11-08] MEDS ORDERED: TAMSULOSIN HCL 0.4 MG CAP PO SCH (17:00)
[2022-11-09 00:41] VITALS: BP 118/55; PULSE 83; RESP 18; TEMP 97.5; O2SAT 100
[2022-11-09] MEDS: ALBUTEROL/IPRATROPIUM 3 ML NEB NEB SCH ×2 (01:00→06:30)
[2022-11-09 04:47] VITALS: BP 127/63; PULSE 82; RESP 18; TEMP 97.8; O2SAT 100
[2022-11-09 06:51] VITALS: PULSE 88; RESP 18; O2SAT 96
[2022-11-09] MEDS: INSULIN REGULAR, HUMAN 100 UNIT/1 ML SQ SCH (07:30)
[2022-11-09 08:12] VITALS: BP 134/62; PULSE 95; RESP 19; TEMP 97.8; O2SAT 99
[2022-11-09 08:22] VITALS: BP 134/62; PULSE 95; RESP 19; TEMP 97.8; O2SAT 99
[2022-11-09] MEDS: ASPIRIN 81 MG CHEW TAB PO SCH (08:33)
[2022-11-09] MEDS: FUROSEMIDE INJ 10 MG/ML 2 ML VIAL IV SCH (08:33)
[2022-11-09] MEDS: CLOPIDOGREL BISULFATE 75 MG TAB PO SCH (08:34)
[2022-11-09] MEDS: METOPROLOL TARTRATE 25 MG TAB PO SCH (08:34)
[2022-11-09] MEDS: PREDNISONE 10 MG TAB PO SCH (08:34)
[2022-11-09] MEDS ORDERED: duoneb INH (10:31)
[2022-11-09] MEDS ORDERED: PLAVIX75 MG PO (10:31)
[2022-11-09] MEDS ORDERED: LOPRESSOR25 MG PO (10:31)
[2022-11-09] MEDS ORDERED: LASIX40 MG PO (10:31)
[2022-11-09] MEDS ORDERED: GLUCOTROL XL5 MG PO (10:32)
[2022-11-09] MEDS ORDERED: FLOMAX0.4 MG PO (10:32)
[2022-11-09] MEDS ORDERED: MUCINEX600 MG PO (10:32)
[2022-11-09] MEDS ORDERED: DOXYCYCLINE HY100 MG PO (10:33)
[2022-11-09] MEDS ORDERED: tessalon perles PO (10:34)
[2022-11-09] MEDS ORDERED: ProAir HFA INH (10:39)
== END 2022-11-09 11:45 | disposition home or self-care (01) | DRG 312 ==
LOC: ER 18:50 → ERHOLD 20:07 → MED/SURG3 23:55 → OBSVTOIN 11-07 13:04
PROVIDERS: ADMIT Internal Medicine; ATTEND Internal Medicine
DX: I95.2 Hypotension due to drugs (principal); I50.33 Acute on chronic diastolic (congestive) heart failure; I13.0 Hypertensive heart and chronic kidney disease with heart failure and stage 1 through stage 4 chronic kidney disease, or unspecified chronic kidney disease; J84.10 Pulmonary fibrosis, unspecified; J47.9 Bronchiectasis, uncomplicated; E66.01 Morbid (severe) obesity due to excess calories; E86.0 Dehydration; E78.5 Hyperlipidemia, unspecified; N18.9 Chronic kidney disease, unspecified; E11.22 Type 2 diabetes mellitus with diabetic chronic kidney disease; Z20.822 Contact with and (suspected) exposure to COVID-19; Z99.81 Dependence on supplemental oxygen; Z86.73 Personal history of transient ischemic attack (TIA), and cerebral infarction without residual deficits; Z79.82 Long term (current) use of aspirin; Z79.84 Long term (current) use of oral hypoglycemic drugs; Z68.35 Body mass index [BMI] 35.0-35.9, adult; Z79.4 Long term (current) use of insulin
CPT/HCPCS: 36415; 71045; 71250; 80048; 80053; 82550; 82948; 83605; 83880; 84484; 85025; 87040; 93005; 94640; 94799; 96361; G0378; J0696; J1940; J7030; J7512; J7799

== ENCOUNTER 2023-03-27 13:59 | Emergency (ER) | payer MEDICARE ==
[~2023-03-27] VITALS: Ht 312.4 cm; Wt 88.0 kg
[~2023-03-27 13:59] MED LIST changes: +DOXYCYCLINE HY100 MG PO; +FLOMAX0.4 MG PO; +GLUCOTROL XL5 MG PO; +LASIX40 MG PO; +LOPRESSOR25 MG PO; +MUCINEX600 MG PO; +PLAVIX75 MG PO; +ProAir HFA INH; +duoneb INH; +tessalon perles PO
[2023-03-27 14:22] VITALS: O2SAT 100
[2023-03-29] MEDS ORDERED: TRESIBA FL100 UNIT/1 (03:03)
[2023-03-29] MEDS ORDERED: NIFEDIPINE ER30 M1 PO (03:03)
[2023-03-29] MEDS ORDERED: FINASTERIDE5 MG PO (03:03)
[2023-03-29] MEDS ORDERED: HYDRALAZINE HCL25 MG PO (03:03)
== END 2023-03-27 15:52 | disposition home or self-care (01) ==
LOC: ER 14:14
DX: Z46.6 Encounter for fitting and adjustment of urinary device (principal); R31.9 Hematuria, unspecified; I10 Essential (primary) hypertension; E11.65 Type 2 diabetes mellitus with hyperglycemia; I50.9 Heart failure, unspecified; Z86.73 Personal history of transient ischemic attack (TIA), and cerebral infarction without residual deficits
CPT/HCPCS: 99283

== ENCOUNTER → 2025-03-08 | Outpatient (REF) | payer MEDICARE ==
[~2025-03-08] MED LIST changes: +FINASTERIDE5 MG PO; +HYDRALAZINE HCL25 MG PO; +NIFEDIPINE ER30 M1 PO; +TRESIBA FL100 UNIT/1
== END ==
LOC: RAD 08:41
PROVIDERS: ATTEND Podiatrist Foot & Ankle Surgery
DX: M79.89 Other specified soft tissue disorders (principal)
CPT/HCPCS: 93970